=== PATIENT | male | born 1965 | race Caucasian/White ===

== ENCOUNTER 2017-06-21 09:11 | Day surgery (SDC) | payer OTHER, BC ==
[~2017-06-21 09:11] MED LIST: ACETAMINOPHEN 1,000 MG/100 ML BTL IV ONE; CEFAZOLIN 2 Gram 2 GM/50 ML BAG IVPB ONE
[2017-06-21] MEDS ORDERED: MORPHINE SULFATE 5 MG/ML PFS IVP ONE (09:12)
[2017-06-21] MEDS ORDERED: METHYLPREDNISOLONE 40MG/VIAL IM ONE (09:12)
[2017-06-21] MEDS ORDERED: PROPOFOL 10 MG/ML VIAL IV ONE (09:12)
[2017-06-21] MEDS ORDERED: LIDOCAINE 2% MDV (20MG/ML) 20ML VIAL IV ONE (09:12)
[2017-06-21] MEDS ORDERED: SEVOFLURANE 250 ML INH ONE (09:12)
[2017-06-21] MEDS ORDERED: KETOROLAC 30 MG/ML VIAL IVP ONE (09:12)
[2017-06-21] MEDS ORDERED: BUPIVACAINE 0.25% MPF 30ML VIAL IVP ONE (09:12)
--- NOTE | 2017-06-21 15:42 | Operative Note ---
DATE: 06/21/2017 PREOPERATIVE DIAGNOSIS: INTERNAL DERANGEMENT OF THE RIGHT KNEE. POSTOPERATIVE DIAGNOSES: 1. SMALL CHONDROMALACIA PATELLOFEMORAL COMPARTMENT. 2. COMPLEX TEAR INVOLVING THE ANTERIOR HORN OF THE MEDIAL MENISCUS. 3. LARGE CYCLOPS LESION. 4. INTACT ACL RECONSTRUCTION. PROCEDURE: 1. RIGHT KNEE ARTHROSCOPY WITH PARTIAL MEDIAL MENISCECTOMY AND DEBRIDEMENT. 2. RIGHT KNEE ARTHROSCOPY WITH INTER-ARTICULAR DEBRIDEMENT AND REMOVAL OF CYCLOPS LESION. STAFF SURGEON: RICK GORDON M.D. ANESTHESIA: GENERAL. PREPARATION: CHLORAPREP. INDIVIDUAL CONSIDERATIONS: NONE. PROCEDURE: The patient was taken to the Operating Room and placed supine on the operating table. He had a successful induction of a general anesthetic. His right lower extremity was prepped and draped in the usual fashion. The patient had superolateral inflow cannula placed. The skin was infiltrated with 0.5% Marcaine with Epinephrine prior. The knee was then inflated with normal saline. An inferior medial and inferior lateral portal were made in a similar fashion. The arthroscope was introduced through the inferior lateral portal up to the pouch. The patellofemoral joint showed basically an intact patella, maybe small areas of grade 3 and nothing significant in the notch. No significant synovitis was seen in either gutter medially. I could barely even see anything. He had a big cyclops lesion extending in the medial compartment. This was debrided out with a shaver. The reconstructed ACL appeared to be intact. He had an obvious complex tear involving the anterior horn of the medial meniscus, which was debrided out to stable rim with basket forceps and a shaver. Laterally again, a lot of scar was debrided out from the previous surgery but the lateral compartment looked okay including the meniscus and articular cartilage. The knee was then irrigated out with saline to remove loose floating debris. The portals were closed with chelo and 20 mL of 0.25% plain Marcaine with Epinephrine along with 5 mg of Morphine and 40 mg DepoMedrol were all injected into the knee and a sterile Bulkee compressive dressing was applied. The patient tolerated the procedures well. Needle and sponge counts were correct. Estimated blood loss was minimal and he was taken back to Recovery in good condition. There were no complications. JOB NUMBER: [id number] [facility]
== END 2017-06-21 12:15 | disposition home or self-care (01) ==
LOC: SUR 09:11
PROVIDERS: ATTEND Orthopaedic Surgery
DX: M23.211 Derangement of anterior horn of medial meniscus due to old tear or injury, right knee (principal); E78.00 Pure hypercholesterolemia, unspecified
CPT/HCPCS: 29881; 01400; J1885; J0690; J2270; J1030